=== PATIENT | male | born 1960 | race Caucasian/White ===

== ENCOUNTER 2018-11-14 22:37 | Emergency (ER) | payer MEDICARE ==
[2018-11-14] MEDS ORDERED: Orphenadrine Citrate 60 MG/2 ML VIAL IM SCH (23:45)
== END 2018-11-15 00:11 | disposition home or self-care (01) ==
LOC: ERS 22:37
DX: S16.1XXA Strain of muscle, fascia and tendon at neck level, initial encounter (principal); F90.9 Attention-deficit hyperactivity disorder, unspecified type; F32.9 Major depressive disorder, single episode, unspecified; Z79.899 Other long term (current) drug therapy; X50.9XXA Other and unspecified overexertion or strenuous movements or postures, initial encounter
CPT/HCPCS: 96372; 99283; J2360